=== PATIENT | female | born 1960 | race Caucasian/White ===

== ENCOUNTER → 2017-02-22 | Outpatient (CLI) | payer BC ==
[~2017-02-22] MED LIST: IBUPROFEN PAIN200 MG PO; KLONOPIN 1MG1 MG PO; LEXAPRO20 MG PO; LORTAB 7.5/5001 TAB PO
== END ==
LOC: MC.RAD 09:19
DX: Z12.31 Encounter for screening mammogram for malignant neoplasm of breast (principal); Z98.890 Other specified postprocedural states

== ENCOUNTER → 2018-02-23 | Outpatient (CLI) | payer BC | LOC: MC.RAD 09:39 | DX: Z12.31 Encounter for screening mammogram for malignant neoplasm of breast (principal) ==

== ENCOUNTER → 2019-02-26 | Outpatient (CLI) | payer BC | LOC: MC.RAD 09:16 | DX: Z12.31 Encounter for screening mammogram for malignant neoplasm of breast (principal) ==

== ENCOUNTER → 2020-02-28 | Outpatient (CLI) | payer BC | LOC: MC.RAD 10:26 | DX: Z12.31 Encounter for screening mammogram for malignant neoplasm of breast (principal); Z98.890 Other specified postprocedural states; Z98.82 Breast implant status; Z85.3 Personal history of malignant neoplasm of breast ==

== ENCOUNTER → 2021-03-02 | Outpatient (CLI) | payer BC | LOC: MC.RAD 09:34 | DX: Z12.31 Encounter for screening mammogram for malignant neoplasm of breast (principal); R92.1 Mammographic calcification found on diagnostic imaging of breast; Z98.890 Other specified postprocedural states; Z95.0 Presence of cardiac pacemaker; Z98.82 Breast implant status ==

== ENCOUNTER → 2021-03-04 | Outpatient (CLI) | payer BC | LOC: MC.RAD 13:43 | DX: R92.1 Mammographic calcification found on diagnostic imaging of breast (principal); Z98.82 Breast implant status; Z98.890 Other specified postprocedural states; Z92.3 Personal history of irradiation; Z85.3 Personal history of malignant neoplasm of breast ==

== ENCOUNTER → 2022-06-25 | Outpatient (CLI) | payer BC | LOC: MC.RAD 13:24 | DX: N64.4 Mastodynia (principal) ==